=== PATIENT | female | born 1960 | race Caucasian/White ===

== ENCOUNTER 2024-01-25 16:06 | Inpatient (IN) | payer OTHER ==
--- NOTE | 2024-01-25 16:37 | ED ---
Skin/Abscess/FB HPI - General Chief complaint: Skin/Abscess/Foreign Body Stated complaint: R Breast Abcess Time Seen by Provider: 01/25/24 16:23 Source: patient, RN notes reviewed Mode of arrival: ambulatory Limitations: no limitations - History of Present Illness Initial comments: This is a 63-year-old female with a past medical history of breast cancer in remission who presents to the emergency department with chief complaint of a right-sided breast abscess. States that she noticed the abscess form last Sunday where she went to her primary care provider and was started on ciprofloxacin. Patient returned to her primary care provider on Sunday due to the area draining where the wound was then cultured. She was contacted by her PCP today stating that the wound culture grew Enterococcus species and was recommended to go to the emergency department for IV antibiotics due to having a medication allergy to penicillins. She denies fevers, nausea, vomiting, abdominal pain, chills, weakness. She denies nipple drainage. States her last mammogram was in July and was normal. - Related Data Home Medications Medication Instructions Recorded Confirmed Benzonatate [Tessalon Perle] 200 mg PO TID PRN 01/25/24 01/25/24 Bisoprolol-Hctz 10-6.25 mg [Ziac 1 tab PO HS 01/25/24 01/25/24 10-6.25 MG] Ciprofloxacin HCl [Cipro] 500 mg PO BID 01/25/24 01/25/24 Flaxseed 1000mg 1,000 mg PO HS 01/25/24 01/25/24 Ibuprofen [Motrin] 800 mg PO Q8H PRN 01/25/24 01/25/24 Montelukast [Singulair] 10 mg PO HS 01/25/24 01/25/24 Allergies Allergy/AdvReac Type Severity Reaction Status Date / Time Cephalosporins Allergy Anaphylaxis Verified 01/25/24 17:50 Penicillins Allergy Anaphylaxis Verified 01/25/24 17:50 shellfish derived [Shellfish] Allergy Anaphylaxis Verified 01/25/24 17:50 tree nut [Nut] Allergy Anaphylaxis Verified 01/25/24 17:50 Review of Systems ROS Statement: Those systems with pertinent positive or pertinent negative responses have been documented in the HPI. ROS Other: All systems not noted in ROS Statement are negative. Past Medical History Past Medical History: Hypertension History of Any Multi-Drug Resistant Organisms: None Reported Past Surgical History: Hysterectomy Past Psychological History: No Psychological Hx Reported Smoking Status: Never smoker Past Alcohol Use History: None Reported Past Drug Use History: None Reported General Exam Limitations: no limitations General appearance: alert, in no apparent distress Head exam: Present: atraumatic, normocephalic, normal inspection Eye exam: Present: normal appearance, PERRL, EOMI. Absent: scleral icterus, c onjunctival injection, periorbital swelling ENT exam: Present: normal exam, mucous membranes moist Neck exam: Present: normal inspection. Absent: tenderness, meningismus, lymphadenopathy Respiratory exam: Present: normal lung sounds bilaterally. Absent: respiratory distress, wheezes, rales, rhonchi, stridor Cardiovascular Exam: Present: regular rate, normal rhythm, normal heart sounds. Absent: systolic murmur, diastolic murmur, rubs, gallop, clicks GI/Abdominal exam: Present: soft, normal bowel sounds. Absent: distended, tenderness, guarding, rebound, rigid Extremities exam: Present: normal inspection, full ROM, normal capillary refill. Absent: tenderness, pedal edema, joint swelling, calf tenderness Back exam: Present: normal inspection Neurological exam: Present: alert, oriented X3, CN II-XII intact Psychiatric exam: Present: normal affect, normal mood Skin exam: Present: warm, dry, other (2.5 cm area of ulceration and purulence noted under the right breast that has an erythematous border, no drained noted, mildly fluctuant) Course Vital Signs 01/25/24 01/25/24 16:21 18:07 Temperature 97.7 F Pulse Rate 64 87 Respiratory 18 18 Rate Blood Pressure 153/78 168/78 O2 Sat by Pulse 97 97 Oximetry Medical Decision Making - Medical Decision Making Was pt. sent in by a medical professional or institution (, PA, LINE DRIVER, urgent care, hospital, or senior living...) When possible be specific @ -No Did you speak to anyone other than the patient for history (EMS, parent, family, police, friend...)? What history was obtained from this source @ -No Did you review nursing and triage notes (agree or disagree)? Why? @ -I reviewed and agree with nursing and triage notes Were old charts reviewed (outside hosp., previous admission, EMS record, old EKG, old radiological studies, urgent care reports/EKG's, senior living records)? Report findings @ -No old charts were reviewed Differential Diagnosis (chest pain, altered mental status, abdominal pain women, abdominal pain men, vaginal bleeding, weakness, fever, dyspnea, syncope, headache, dizziness, GI bleed, back pain, seizure, CVA, palpatations, mental health, musculoskeletal)? @ -breast abscess, cellulitis EKG interpreted by me (3pts min.). @ -None X-rays interpreted by me (1pt min.). @ -None done CT interpreted by me (1pt min.). @ -None done U/S interpreted by me (1pt. min.). @ -None done What testing was considered but not performed or refused? (CT, X-rays, U/S, labs)? Why? @ -None What meds were considered but not given or refused? Why? @ -None Did you discuss the management of the patient with other professionals (professionals i.e. , INDIO, LINE DRIVER, lab, RT, psych nurse, outreach and education social worker, independent driver, teacher, psychological operations officer, aviation program manager)? Give summary @ -I spoke with ODALYS Mccracken with [facility], in regard to admission for patient for IV antibiotics. Patient accepted Was smoking cessation discussed for >3mins.? @ -No Was critical care preformed (if so, how long)? @ -No Were there social determinants of health that impacted care today? How? (Homelessness, low income, unemployed, alcoholism, drug addiction, transportation, low edu. Level, literacy, decrease access to med. care, penitentiary, rehab)? @ -No Was there de-escalation of care discussed even if they declined (Discuss DNR or withdrawal of care, Hospice)? DNR status @ -No What co-morbidities impacted this encounter? (DM, HTN, Smoking, COPD, CAD, Cancer, CVA, ARF, Chemo, Hep., AIDS, mental health diagnosis, sleep apnea, morbid obesity)? @ -None Was patient admitted / discharged? Hospital course, mention meds given and route, prescriptions, significant lab abnormalities, going to OR and other pe rtinent info. @ -Admitted. 63-year-old female with complaint of right-sided breast abscess. On physical examination patient noted to have roughly 2 and half centimeter area of abscess that has borders of erythema and purulence noted with no signs of draining. Area is mildly fluctuant. At this time basic labs ordered in addition to lactic and blood cultures. I spoke with Kaykay from [facility] who is in agreement with admission for IV antibiotics due to patient's wound culture testing for Enterococcus. Patient will be started on vancomycin and admitted as inpatient. Spoke with Dr. Rehman Undiagnosed new problem with uncertain prognosis? @ -No Drug Therapy requiring intensive monitoring for toxicity (Heparin, Nitro, Insulin, Cardizem)? @ -No Were any procedures done? @ -No Diagnosis/symptom? @ -breast abscess, cellulitis Acute, or Chronic, or Acute on Chronic? @ -acute Uncomplicated (without systemic symptoms) or Complicated (systemic symptoms)? @ uncomplicated Side effects of treatment? @ -No Exacerbation, Progression, or Severe Exacerbation? @ -No Poses a threat to life or bodily function? How? (Chest pain, [place], [place], pneumonia, PE, COPD, DKA, ARF, appy, cholecystitis, CVA, Diverticulitis, Homicidal, Suicidal, threat to staff... and all critical care pts) @ -No - Lab Data Result diagrams: 01/25/24 17:12 01/25/24 17:12 Disposition Clinical Impression: Breast abscess of female Disposition: ADMITTED IP TO THIS [facility] Condition: Good Decision to Admit Reason: Admit from EC Decision Date: 01/25/24
[2024-01-25] MEDS ORDERED: VANCOMYCIN IV PER PHARMACY 1 EACH MISC MISCELLANE PRN (17:00)
[2024-01-25] MEDS ORDERED: NALOXONE 0.4 MG/ML 1 ML VIAL IV PRN (17:04)
[2024-01-25] MEDS: VANCOMYCIN 1,750 MG in SODIUM CHLORIDE 0.9% 500 ML 500 ML IVPB ONE (17:38)
[2024-01-25 17:49] LABS: ALT 22 U/L (4-34); AST 26 U/L (14-36); African American GFR (CKD) 89 (>60 ml/min/1.73 sqM); Albumin 4.2 g/dL (3.5-5.0); Alkaline Phosphatase 98 U/L (38-126); Anion Gap 8 mmol/L; Blood Urea Nitrogen 19 mg/dL (7-17); Calcium 10.1 mg/dL (8.4-10.2); Carbon Dioxide 25 mmol/L (22-30); Chloride 106 mmol/L (98-107); Glucose 93 mg/dL (74-99); Non-African American GFR(CKD) 77 (>60 ml/min/1.73 sqM); Potassium 4.1 mmol/L (3.5-5.1); Sodium 139 mmol/L (137-145); Total Bilirubin 0.2 mg/dL (0.2-1.3); Total Protein 7.1 g/dL (6.3-8.2)
[2024-01-25 17:52] LABS: Basophils # (A) 0.1 k/uL (0-0.2); Basophils % (A) 0 %; Eosinophils # (A) 0.2 k/uL (0-0.7); Eosinophils % (A) 2 %; HCT 40.8 % (34.0-46.0); HGB 13.7 gm/dL (11.4-16.0); Lymphocytes # (A) 2.9 k/uL (1.0-4.8); Lymphocytes % (A) 26 %; MCH 31.8 pg (25.0-35.0); MCHC 33.5 g/dL (31.0-37.0); MCV 94.9 fL (80.0-100.0); Mean Platelet Volume 9.1; Monocytes # (A) 0.6 k/uL (0-1.0); Monocytes % (A) 5 %; Neutrophils # (A) 7.1 k/uL (1.3-7.7); Neutrophils % (A) 64 %; Platelet Count 307 k/uL (150-450); WBC 11.1 k/uL (3.8-10.6)
[2024-01-25] MEDS ORDERED: BENZONATATE 100 MG CAP PO PRN (22:03)
[2024-01-25] MEDS ORDERED: FLAXSEED 1000 MG PO SCH (22:15)
[2024-01-25] MEDS ORDERED: CIPROFLOXACIN HCL 500 MG TAB PO SCH (22:15)
[2024-01-25] MEDS: BISOPROLOL-HCTZ 10-6.25 MG 1 EACH TAB PO SCH (22:55)
[2024-01-26] MEDS: IBUPROFEN 400 MG TAB PO PRN (03:31)
[2024-01-26] MEDS: ACETAMINOPHEN TAB 325 MG TAB PO PRN (08:25)
[2024-01-26 09:17] LABS: Basophils # (A) 0.04 X 10*3/uL (0.00-0.10); Basophils % (A) 0.5 %; Eosinophils # (A) 0.13 X 10*3/uL (0.04-0.35); Eosinophils % (A) 1.6 %; HCT 39.4 % (37.2-46.3); HGB 13.2 g/dL (12.0-15.0); Lymphocytes % (A) 30.6 %; MCH 31.8 pg (27.0-32.0); MCHC 33.5 g/dL (32.0-37.0); MCV 94.9 FL (80.0-97.0); Mean Platelet Volume 11.8 FL (9.5-12.2); Monocytes # (A) 0.66 X 10*3/uL (0.20-1.00); Monocytes % (A) 8.1 %; NRBC Per 100 WBC 0 X 10*3/uL (0.00-0.01); Neutrophils # (A) 4.83 X 10*3/uL (1.80-7.70); Platelet Count 309 X 10*3/uL (140-440); RBC 4.15 X 10*6/uL (4.10-5.20); RDW 12.4 % (11.5-14.5); WBC 8.18 X 10*3/uL (4.50-10.00)
[2024-01-26] MEDS: VANCOMYCIN 1,750 MG in SODIUM CHLORIDE 0.9% 500 ML 500 ML IVPB SCH (10:05)
[2024-01-26 10:53] LABS: ALT 16 U/L (8-44); AST 20 U/L (13-35); Albumin 3.9 g/dL (3.8-4.9); Alkaline Phosphatase 80 U/L (41-126); BUN/Creat Ratio 18.38 Ratio (12.00-20.00); Blood Urea Nitrogen 14.7 mg/dL (9.0-27.0); Calcium 9.5 mg/dL (8.7-10.3); Carbon Dioxide 25.2 mmol/L (21.6-31.8); Chloride 106 mmol/L (96-109); Globulin 2.3 g/dL (1.6-3.3); Glucose 96 mg/dL (70-110); Potassium 4.2 mmol/L (3.5-5.5); Sodium 141 mmol/L (135-145); Total Bilirubin 0.4 mg/dL (0.3-1.2); Total Protein 6.2 g/dL (6.2-8.2)
[2024-01-26] MEDS ORDERED: HYDROcodone/APAP 5-325MG 1 EACH TAB PO PRN (12:34)
[2024-01-26] MEDS ORDERED: HYDROmorphone 0.5 MG/0.5 ML SYRINGE IVP PRN (12:35)
--- NOTE | 2024-01-26 15:12 | HP ---
HISTORY AND PHYSICAL CHIEF COMPLAINT: Right breast abscess. HISTORY OF PRESENT ILLNESS: This is a 63-year-old woman with a past medical history of hypertension, being followed by Dr. Rose as an outpatient, noted to have right breast abscess since last Sunday. There was some discharge. The patient was started on because of failure of outpatient treatment. The patient was sent to [facility] for further evaluation and treatment. Enterococcus has grown from the cultures. There is no history of fever, rigors, or chills. Ultrasound has been done. PAST MEDICAL HISTORY: Hypertension. Rest of the history and rest of the chart is also reviewed. HOME MEDICATIONS: Singulair, dose and rest of medications noted. ALLERGIES: Cephalosporin, rest of allergies noted. FAMILY HISTORY: No history of heart disease or strokes. SOCIAL HISTORY: No history of smoking, alcohol, or drug abuse. REVIEW OF SYSTEMS: Fourteen-point review is negative as mentioned earlier. PHYSICAL EXAMINATION: VITAL SIGNS: Pulse is 57, blood pressure 142/80, respirations 16. CHEST: Clear to auscultation. CARDIOVASCULAR: S1 and S2. ABDOMEN: Soft. NERVOUS SYSTEM: No focal deficits. BREASTS: On examination of the right breast, area of whitish-yellowish discharge and demarcated area present, possibly abscess draining. LABORATORY DATA: Reviewed. ASSESSMENT: 1. Right breast abscess and cellulitis, status post failure of outpatient treatment. 2. Multiple allergies. 3. Hypertension. RECOMMENDATIONS AND DISCUSSION: This is a 63-year-old woman, who presented with multiple complex medical issues. We will monitor the patient closely. The patient was started on vancomycin, Infectious Disease evaluation, and cultures. Also recommend surgical evaluation and guarded prognosis because of multiple complex medical issues. DVT prophylaxis. Further recommendations to follow. Symptomatic treatment. MMODL / IJN: [id number] / JESSE
[2024-01-26] MEDS: MONTELUKAST 10 MG TAB PO SCH (20:51)
[2024-01-26] MEDS: HEPARIN SODIUM,PORCINE 5,000 UNIT/ML 1 ML VIAL SQ SCH (20:51)
--- NOTE | 2024-01-26 23:04 | P.CONS ---
History of Present Illness - Reason for Consult Consult date: 01/26/24 - History of Present Illness Patient is a 63-year-old female with a past medical history significant for hypertension previous history of right breast cancer status post lumpectomy however the patient recently did have a yearly mammogram that was negative for any abnormality apparently the patient has developed a wound to the right breast area and concern for possible abscess that has been treated in the outpatient setting with Cipro and did not have any improvement apparently the patient has been invited by her primary care physician culture have been obtained which grew Enterococcus for the patient was advised to go to the hospital for IV antibiotic therapy as the patient to have allergies to penicilli n and cephalosporin patient denies high-grade fever or any chills has been complaining of some dull aching pain to the right breast area mild to moderate intensity without any radiation did have wound but denies any foul-smelling drainage with the symptoms the patient was evaluated on presentation to the hospital the patient was afebrile and no fever have been recorded subsequently patient was nontachycardic hypertensive or hypoxic did have white count of 11.1 creatinine 0.82 liver enzymes are normal electrolytes are normal local culture has been obtained breast ultrasound obtained which is currently pending patient was started on vancomycin infectious disease was consulted for further manag ement of antibiotic therapy Past Medical History Past Medical History: Hypertension History of Any Multi-Drug Resistant Organisms: None Reported Past Surgical History: Hysterectomy Additional Past Surgical History / Comment(s): Breast lumpectomy, finger repair, left hand carpol tunnel Past Anesthesia/Blood Transfusion Reactions: No Reported Reaction Past Psychological History: No Psychological Hx Reported Smoking Status: Never smoker Past Alcohol Use History: None Reported Past Drug Use History: None Reported Medications and Allergies Home Medications Medication Instructions Recorded Confirmed Type Benzonatate [Tessalon Perle] 200 mg PO TID PRN 01/25/24 01/25/24 History Bisoprolol-Hctz 10-6.25 mg [Ziac 1 tab PO HS 01/25/24 01/25/24 History 10-6.25 MG] Ciprofloxacin HCl [Cipro] 500 mg PO BID 01/25/24 01/25/24 History Flaxseed 1000mg 1,000 mg PO HS 01/25/24 01/25/24 History Ibuprofen [Motrin] 800 mg PO Q8H PRN 01/25/24 01/25/24 History Montelukast [Singulair] 10 mg PO HS 01/25/24 01/25/24 History Allergies Allergy/AdvReac Type Severity Reaction Status Date / Time Cephalosporins Allergy Anaphylaxis Verified 01/25/24 17:50 Penicillins Allergy Anaphylaxis Verified 01/25/24 17:50 shellfish derived [Shellfish] Allergy Anaphylaxis Verified 01/25/24 17:50 tree nut [Nut] Allergy Anaphylaxis Verified 01/25/24 17:50 Physical Exam Vitals: Vital Signs Temp Pulse Pulse Resp BP BP Pulse Ox 01/26/24 07:34 97.8 F 57 L 16 142/82 97 01/26/24 01:31 97.9 F 57 L 17 117/70 97 01/25/24 21:52 97.7 F 70 18 153/79 99 01/25/24 21:36 78 16 166/71 96 01/25/24 21:00 61 81 H 110/59 99 01/25/24 18:07 87 18 168/78 97 01/25/24 16:21 97.7 F 64 18 153/78 97 Intake and Output 01/25/24 01/26/24 01/26/24 22:59 06:59 14:59 Other: Voiding Method Toilet # Voids 2 Weight 111.13 kg Results CBC & Chem 7: 01/26/24 04:10 01/26/24 04:10 Labs: Abnormal Lab Results - Last 24 Hours (Table) 01/25/24 01/25/24 Range/Units 17:12 17:12 WBC 11.1 H (3.8-10.6) k/uL BUN 19 H (7-17) mg/dL Assessment and Plan Plan: 1patient presented hospital with a nonhealing wound to the right breast area concerning for possible wound infection and underlying abscess with outpatient culture positive for Enterococcus faecalis failing oral ciprofloxacin therapy 2-patient with multiple antibiotic ALLERGIES that would limit the number of antibiotic safe to use 3-await ultrasound and surgical evaluation and need for debridement versus drainage 4-vancomycin pharmacy to dose target trough of 15 while watching kidney function and Vanco trough closely We will follow on clinical condition and cultures to further adjust medication if needed Thank you for this consultation we will follow the patient along with you Dictation was produced using Anda dictation software. please excuse any grammatical, word or spelling errors. Time with Patient: Greater than 30
[2024-01-27 09:24] LABS: Basophils # (A) 0.05 X 10*3/uL (0.00-0.10); Basophils % (A) 0.7 %; Eosinophils # (A) 0.11 X 10*3/uL (0.04-0.35); Eosinophils % (A) 1.5 %; HCT 40.6 % (37.2-46.3); HGB 13.7 g/dL (12.0-15.0); Lymphocytes # (A) 1.76 X 10*3/uL (0.90-5.00); Lymphocytes % (A) 23.2 %; MCH 31.6 pg (27.0-32.0); MCHC 33.7 g/dL (32.0-37.0); MCV 93.5 FL (80.0-97.0); Mean Platelet Volume 11.5 FL (9.5-12.2); Monocytes # (A) 0.49 X 10*3/uL (0.20-1.00); Monocytes % (A) 6.5 %; NRBC Per 100 WBC 0 X 10*3/uL (0.00-0.01); Neutrophils # (A) 5.14 X 10*3/uL (1.80-7.70); Neutrophils % (A) 67.8 %; Platelet Count 281 X 10*3/uL (140-440); RBC 4.34 X 10*6/uL (4.10-5.20); RDW 12.4 % (11.5-14.5); WBC 7.57 X 10*3/uL (4.50-10.00)
--- NOTE | 2024-01-27 09:34 | P.GSCN ---
History of Present Illness Consult date: 01/27/24 Reason for Consult: Possible right breast abscess History of present illness: This is a 61-year-old female who has a one-week history of induration of the skin under her right breast. Patient was admitted to the hospital for IV antibiotics. Patient has a 2 cm area of indurated skin. The skin appears to be sloughing in this area. Past Medical History Past Medical History: Hypertension History of Any Multi-Drug Resistant Organisms: None Reported Past Surgical History: Hysterectomy Additional Past Surgical History / Comment(s): Breast lumpectomy, finger repair, left hand carpol tunnel Past Anesthesia/Blood Transfusion Reactions: No Reported Reaction Past Psychological History: No Psychological Hx Reported Smoking Status: Never smoker Past Alcohol Use History: None Reported Past Drug Use History: None Reported Medications and Allergies Home Medications Medication Instructions Recorded Confirmed Type Benzonatate [Tessalon Perle] 200 mg PO TID PRN 01/25/24 01/25/24 History Bisoprolol-Hctz 10-6.25 mg [Ziac 1 tab PO HS 01/25/24 01/25/24 History 10-6.25 MG] Ciprofloxacin HCl [Cipro] 500 mg PO BID 01/25/24 01/25/24 History Flaxseed 1000mg 1,000 mg PO HS 01/25/24 01/25/24 History Ibuprofen [Motrin] 800 mg PO Q8H PRN 01/25/24 01/25/24 History Montelukast [Singulair] 10 mg PO HS 01/25/24 01/25/24 History Allergies Allergy/AdvReac Type Severity Reaction Status Date / Time Cephalosporins Allergy Anaphylaxis Verified 01/25/24 17:50 Penicillins Allergy Anaphylaxis Verified 01/25/24 17:50 shellfish derived [Shellfish] Allergy Anaphylaxis Verified 01/25/24 17:50 tree nut [Nut] Allergy Anaphylaxis Verified 01/25/24 17:50 Surgical - Exam Vital Signs Temp Pulse Resp BP Pulse Ox 97.7 F 64 18 153/78 97 01/25/24 16:21 01/25/24 16:21 01/25/24 16:21 01/25/24 16:21 01/25/24 16:21 - General well developed - Eyes PERRL - Abdomen Abdomen: soft, non tender - Integumentary There is a 2 cm area of induration skin which is lWhite in color and appears to be sloughing.c. There is no definite abscess palpated. Results - Labs 01/27/24 06:17 01/26/24 04:10 Microbiology - Last 24 Hours (Table) 01/25/24 17:12 Blood Culture - Preliminary Blood Diabetes panel 01/26/24 Range/Units 04:10 Sodium 141 (135-145) mmol/L Potassium 4.2 (3.5-5.5) mmol/L Chloride 106 (96-109) mmol/L Carbon Dioxide 25.2 (21.6-31.8) mmol/L BUN 14.7 (9.0-27.0) mg/dL Creatinine 0.8 (0.6-1.5) mg/dL Glucose 96 (70-110) mg/dL Calcium 9.5 (8.7-10.3) mg/dL AST 20 (13-35) U/L ALT 16 (8-44) U/L Alkaline Phosphatase 80 (41-126) U/L Total Protein 6.2 (6.2-8.2) g/dL Albumin 3.9 (3.8-4.9) g/dL Calcium panel 01/26/24 Range/Units 04:10 Calcium 9.5 (8.7-10.3) mg/dL Albumin 3.9 (3.8-4.9) g/dL Pituitary panel 01/26/24 Range/Units 04:10 Sodium 141 (135-145) mmol/L Potassium 4.2 (3.5-5.5) mmol/L Chloride 106 (96-109) mmol/L Carbon Dioxide 25.2 (21.6-31.8) mmol/L BUN 14.7 (9.0-27.0) mg/dL Creatinine 0.8 (0.6-1.5) mg/dL Glucose 96 (70-110) mg/dL Calcium 9.5 (8.7-10.3) mg/dL Adrenal panel 01/26/24 Range/Units 04:10 Sodium 141 (135-145) mmol/L Potassium 4.2 (3.5-5.5) mmol/L Chloride 106 (96-109) mmol/L Carbon Dioxide 25.2 (21.6-31.8) mmol/L BUN 14.7 (9.0-27.0) mg/dL Creatinine 0.8 (0.6-1.5) mg/dL Glucose 96 (70-110) mg/dL Calcium 9.5 (8.7-10.3) mg/dL Total Bilirubin 0.4 (0.3-1.2) mg/dL AST 20 (13-35) U/L ALT 16 (8-44) U/L Alkaline Phosphatase 80 (41-126) U/L Total Protein 6.2 (6.2-8.2) g/dL Albumin 3.9 (3.8-4.9) g/dL Assessment and Plan Assessment: Possible right breast abscess. Patient will be observed.If her condition change or may require incision and drainage.
[2024-01-27 10:10] LABS: BUN/Creat Ratio 16.86 Ratio (12.00-20.00); Blood Urea Nitrogen 11.8 mg/dL (9.0-27.0); Calcium 9.8 mg/dL (8.7-10.3); Carbon Dioxide 24.3 mmol/L (21.6-31.8); Chloride 104 mmol/L (96-109); Glucose 98 mg/dL (70-110); Potassium 4.3 mmol/L (3.5-5.5); Sodium 137 mmol/L (135-145)
--- NOTE | 2024-01-27 14:00 | PN ---
PROGRESS NOTE DATE OF SERVICE: 01/27/2024 SUBJECTIVE: This 63-year-old woman was admitted with right breast cellulitis and possible abscess, being closely monitored. Ultrasound is still pending. No chest pain, no palpitation. OBJECTIVE: VITAL SIGNS: Pulse is 55, blood pressure 141/84, respirations 18. CHEST: Clear to auscultation. CARDIOVASCULAR: S1, S2. ABDOMEN: Soft. BREASTS: Right breast cellulitis and some scab also present with indurated skin. LABORATORY DATA: Reviewed. ASSESSMENT: 1. Right breast cellulitis and possibly abscess, status post failure of outpatient treatment. 2. Multiple allergies. 3. Hypertension. RECOMMENDATIONS AND DISCUSSION: Recommended to continue current management, continue symptomatic treatment. Await final report of the ultrasound. Repeat labs. Continue with antibiotics. Closely follow with surgery, Infectious Disease. Further recommendations to follow. MMODL / IJN: [id number] /
[2024-01-28] MEDS: VANCOMYCIN TROUGH DUE 1 EACH MISC MISCELLANE ONE (08:54)
--- NOTE | 2024-01-28 09:04 | P.PN ---
Subjective Progress Note Date: 01/28/24 This 63-year-old female who was admitted for right-sided breast abscess and failure of outpatient treatment. Patient had been started on ciprofloxacin in our office and was not improving so culture was done and showed Enterococcus species. She has multiple medication allergies and limited susceptibility to Enterococcus so she was sent to the hospital for IV antibiotics. Patient remains on vancomycin. She has been seen and evaluated by surgeon and infectious disease. Surgeon at this time is not recommending any I&D. She did have an ultrasound of the right breast, no result yet. Patient is seen this morning sitting in chair at side of bed eating breakfast. She reports she has been up walking the halls. She is tolerating diet. She reports right breast abscess is still draining. Objective - Vital Signs Vital signs: Vital Signs Temp 97.7 F 01/28/24 06:58 Pulse 59 L 01/28/24 06:58 Resp 18 01/28/24 06:58 BP 157/90 01/28/24 06:58 Pulse Ox 97 01/28/24 06:58 FiO2 Intake & Output 01/27/24 01/28/24 01/28/24 18:59 06:59 18:59 Other: Voiding Method Toilet Toilet Toilet # Voids 1 1 1 - Constitutional General appearance: Present: cooperative, no acute distress - EENT Eyes: Present: PERRLA - Neck Neck: Present: normal ROM. Absent: lymphadenopathy, rigidity - Respiratory Respiratory: bilateral: CTA - Cardiovascular Rhythm: regular Heart sounds: normal: S1, S2 - Gastrointestinal General gastrointestinal: Present: soft. Absent: tenderness - Integumentary Integumentary: Present: cellulitis - Psychiatric Psychiatric: Present: A&O x's 3, appropriate affect, intact judgment & insight - Labs CBC & Chem 7: 01/27/24 06:17 01/27/24 06:17 Labs: Microbiology - Last 24 Hours (Table) 01/25/24 17:12 Blood Culture - Preliminary Blood Assessment and Plan (1) Breast abscess of female Current Visit: Yes Status: Acute Code(s): N61.1 - ABSCESS OF THE BREAST AND NIPPLE SNOMED Code(s): 23111785 (2) Cellulitis of right breast Current Visit: Yes Status: Acute Code(s): N61.0 - MASTITIS WITHOUT ABSCESS SNOMED Code(s): 34133957 (3) Hypertension Current Visit: Yes Status: Acute Code(s): I10 - ESSENTIAL (PRIMARY) HYPERTENSION SNOMED Code(s): 25839800 Plan: Continue IV antibiotics Await results of breast ultrasound Check CBC and CMP in the morning Patient seen and evaluated by nurse practitioner, physician in agreement with plan
--- NOTE | 2024-01-28 09:49 | USB ---
Reason for Exam: Clinical finding. Risk Values: Juliane 5 year model risk: 1.0%. NCI Lifetime model risk: 4.6%. Findings: Targeted ultrasound at the patient's area of concern shows some focal skin thickening, 5:00 position, 6 cm from the nipple. No underlying solid or cystic lesion or abnormal fluid collection is identified. No axillary lymphadenopathy. Overall Assessment: Incomplete: need additional imaging evaluation, BI-RAD 0 Management: Diagnostic Mammogram of both breasts. Recommend follow-up diagnostic workup with bilateral diagnostic mammograms. The targeted ultrasound at the 5:00 position area of concern shows focal skin thickening possibly relating to cellulitis. No underlying abscess is identified here. This exam should not preclude additional follow-up of suspicious palpable abnormalities. Results were given to the patient verbally at the time of exam. Electronically signed and approved by: Gabino Jalloh M.D. Radiologist
[2024-01-28 11:18] LABS: Basophils # (A) 0.05 X 10*3/uL (0.00-0.10); Basophils % (A) 0.8 %; Eosinophils # (A) 0.12 X 10*3/uL (0.04-0.35); Eosinophils % (A) 1.9 %; HCT 41.3 % (37.2-46.3); HGB 13.8 g/dL (12.0-15.0); Lymphocytes # (A) 1.66 X 10*3/uL (0.90-5.00); Lymphocytes % (A) 26.1 %; MCH 31.6 pg (27.0-32.0); MCHC 33.4 g/dL (32.0-37.0); MCV 94.5 FL (80.0-97.0); Mean Platelet Volume 11.7 FL (9.5-12.2); Monocytes # (A) 0.46 X 10*3/uL (0.20-1.00); Monocytes % (A) 7.2 %; NRBC Per 100 WBC 0 X 10*3/uL (0.00-0.01); Neutrophils # (A) 4.07 X 10*3/uL (1.80-7.70); Neutrophils % (A) 63.8 %; Platelet Count 312 X 10*3/uL (140-440); RBC 4.37 X 10*6/uL (4.10-5.20); RDW 12.4 % (11.5-14.5); WBC 6.37 X 10*3/uL (4.50-10.00)
[2024-01-28 11:28] LABS: BUN/Creat Ratio 20.71 Ratio (12.00-20.00); Blood Urea Nitrogen 14.5 mg/dL (9.0-27.0); Calcium 9.8 mg/dL (8.7-10.3); Carbon Dioxide 27.4 mmol/L (21.6-31.8); Chloride 103 mmol/L (96-109); Glucose 96 mg/dL (70-110); Potassium 4.6 mmol/L (3.5-5.5); Sodium 140 mmol/L (135-145)
--- NOTE | 2024-01-28 16:17 | P.PN ---
Subjective Progress Note Date: 01/28/24 CHIEF COMPLAINT: Possible right breast abscess HISTORY OF PRESENT ILLNESS: Patient reports decrease in pain. She does have drainage from the right breast. She reports that she thinks the central area of the breast abscess is getting darker. Afebrile. WBC 6.37 PHYSICAL EXAM: VITAL SIGNS: Reviewed. GENERAL: Well-developed in no acute distress. ABDOMEN: Soft. Nondistended. Nontender. NEUROLOGIC: Alert and oriented. Cranial nerves II through XII grossly intact. Skin: Under the right breast area of induration and white color. Inside the whitish color is a darkened area. Small amount of drainage noted on bandage. ASSESSMENT: 1. Possible right breast abscess PLAN: -Continue to observe. Patient may require incision and drainage -Continue antibiotics -Continue local wound care Physician Linux System Administrator note has been reviewed by physician. Signing provider agrees with the documented findings, assessment, and plan of care. Objective - Vital Signs Vital signs: Vital Signs Temp 97.8 F 01/28/24 12:30 Pulse 55 L 01/28/24 12:30 Resp 18 01/28/24 12:30 BP 141/90 01/28/24 12:30 Pulse Ox 97 01/28/24 12:30 FiO2 Intake & Output 01/27/24 01/28/24 01/28/24 18:59 06:59 18:59 Other: Voiding Method Toilet Toilet Toilet # Voids 1 1 1 # Bowel Movements 1 - Labs CBC & Chem 7: 01/28/24 08:13 01/28/24 08:13 Labs: Abnormal Lab Results - Last 24 Hours (Table) 01/28/24 Range/Units 08:13 BUN/Creatinine Ratio 20.71 H (12.00-20.00) Ratio Microbiology - Last 24 Hours (Table) 01/25/24 17:12 Blood Culture - Preliminary Blood
[2024-01-29 02:02] VITALS: TEMP 98
[2024-01-29 08:10] VITALS: BP 130/87; PULSE 55; RESP 16
--- NOTE | 2024-01-29 08:24 | P.DS ---
Providers Date of admission: 01/25/24 16:57 Attending physician: Juvenal Rose Consults: 01/26/24 06:50 Consult Physician Routine Consulting Provider: Janice Villafuerte Consult Reason/Comments: right breast abscess, failure of O/P tx Do you want consulting provider notified?: Yes 01/26/24 13:12 Consult Physician Urgent Consulting Provider: Sanijv Thompson Consult Reason/Comments: right breast abscess Do you want consulting provider notified?: Yes Primary care physician: Juvenal Rose - Discharge Diagnosis(es) (1) Cellulitis of right breast Current Visit: Yes Status: Acute (2) Hypertension Current Visit: Yes Status: Acute Hospital Course: This 63-year-old female who was admitted for possible right-sided breast abscess and failure of outpatient treatment. Patient had been started on ciprofloxacin in our office and was not improving so culture was done and showed Enterococcus species. She has multiple medication allergies and limited susceptibility to Enterococcus so she was sent to the hospital for IV antibiotics. Patient on vancomycin during admission. She has been seen and evaluated by surgeon and infectious disease. Surgeon at this time is not recommending any I&D. She did have an ultrasound of the right breast, which shows no abscess. Patient is eager to go home. Labs have been normal, no white count. Vital stable, no fever noted. Cellulitis on right breast is still draining some. Will need to check with Dr. Villafuerte about discharge antibiotics, oral vs IV. Once cleared by infectious disease and surgeon, and antibiotic plan is in place, patient may be discharged home. Patient seen and evaluated by nurse practitioner, physician in agreement with plan. Patient Condition at Discharge: Good Plan - Discharge Summary Discharge Rx Participant: No New Discharge Prescriptions: Continue Montelukast [Singulair] 10 mg PO HS Flaxseed 1000mg 1,000 mg PO HS Ibuprofen [Motrin] 800 mg PO Q8H PRN PRN Reason: Pain Bisoprolol-Hctz 10-6.25 mg [Ziac 10-6.25 MG] 1 tab PO HS Benzonatate [Tessalon Perle] 200 mg PO TID PRN PRN Reason: Cough Discontinued Ciprofloxacin HCl [Cipro] 500 mg PO BID Discharge Medication List Benzonatate [Tessalon Perle] 200 mg PO TID PRN 01/25/24 [History] Bisoprolol-Hctz 10-6.25 mg [Ziac 10-6.25 MG] 1 tab PO HS 01/25/24 [History] Flaxseed 1000mg 1,000 mg PO HS 01/25/24 [History] Ibuprofen [Motrin] 800 mg PO Q8H PRN 01/25/24 [History] Montelukast [Singulair] 10 mg PO HS 01/25/24 [History] Follow up Appointment(s)/Referral(s): Juvenal Rose MD [Primary Care Provider] - 3 Days Discharge Disposition: HOME SELF-CARE
--- NOTE | 2024-01-29 11:21 | P.PN ---
Subjective Progress Note Date: 01/29/24 CHIEF COMPLAINT: Possible right breast abscess HISTORY OF PRESENT ILLNESS: Patient reports improvement in her pain. She reports minimal discomfort. There is minimal drainage. Afebrile WBC 6.37 PHYSICAL EXAM: VITAL SIGNS: Reviewed. GENERAL: Well-developed in no acute distress. ABDOMEN: Soft. Nondistended. Nontender. NEUROLOGIC: Alert and oriented. Cranial nerves II through XII grossly intact. Skin: Under the right breast area of induration and white color. Inside the whitish color is a darkened area. Small amount of drainage noted on bandage. ASSESSMENT: 1. Right breast ulceration PLAN: -Patient can be discharged from surgical standpoint -No surgical intervention planned -Continue local wound care at discharge -Antibiotics per infectious disease Physician Stereo Operator note has been reviewed by physician. Signing provider agrees with the documented findings, assessment, and plan of care. Objective - Vital Signs Vital signs: Vital Signs Temp 98.0 F 01/29/24 07:27 Pulse 55 L 01/29/24 07:27 Resp 16 01/29/24 07:27 BP 130/87 01/29/24 07:27 Pulse Ox 97 01/29/24 07:27 FiO2 Intake & Output 01/28/24 01/29/24 01/29/24 18:59 06:59 18:59 Other: Voiding Method Toilet Toilet # Voids 1 1 # Bowel Movements 1 - Labs CBC & Chem 7: 01/28/24 08:13 01/28/24 08:13 Labs: Abnormal Lab Results - Last 24 Hours (Table) 01/28/24 Range/Units 08:13 BUN/Creatinine Ratio 20.71 H (12.00-20.00) Ratio Microbiology - Last 24 Hours (Table) 01/25/24 17:12 Blood Culture - Preliminary Blood
[2024-01-29 11:46] LABS: HCT 40.6 % (37.2-46.3); HGB 13.5 g/dL (12.0-15.0); MCH 31.5 pg (27.0-32.0); MCHC 33.3 g/dL (32.0-37.0); MCV 94.9 FL (80.0-97.0); NRBC Per 100 WBC 0 X 10*3/uL (0.00-0.01); Platelet Count 324 X 10*3/uL (140-440); RBC 4.28 X 10*6/uL (4.10-5.20); RDW 12.5 % (11.5-14.5); WBC 7.26 X 10*3/uL (4.50-10.00)
[2024-01-29 11:58] LABS: ALT 15 U/L (8-44); AST 18 U/L (13-35); Albumin/Globulin Ratio 1.74 Ratio (1.60-3.17); Alkaline Phosphatase 86 U/L (41-126); BUN/Creat Ratio 16.43 Ratio (12.00-20.00); Blood Urea Nitrogen 11.5 mg/dL (9.0-27.0); Carbon Dioxide 26.4 mmol/L (21.6-31.8); Chloride 105 mmol/L (96-109); Globulin 2.3 g/dL (1.6-3.3); Glucose 93 mg/dL (70-110); Potassium 4.4 mmol/L (3.5-5.5); Sodium 141 mmol/L (135-145); Total Bilirubin 0.4 mg/dL (0.3-1.2); Total Protein 6.3 g/dL (6.2-8.2)
--- NOTE | 2024-01-29 13:41 | P.PN ---
Subjective Progress Note Date: 01/27/24 Principal diagnosis: Reason for follow-up is right breast wound and possible abscess Patient is a 63-year-old female with a past medical history significant for hypertension previous history of right breast cancer status post lumpectomy however the patient recently did have a yearly mammogram that was negative for any abnormality, patient presented to hospital with a nonhealing wound on the right breast concerning for cellulitis outpatient culture with Enterococcus faecalis feeling outpatient oral Cipro. On today's evaluation that is 01/27/2024, the patient continues to be afebrile, the patient is on room air and breathing comfortably, the Pt denies having any chest pain or cough, the patient denies having any abdominal pain no vomiting or any diarrhea has been reported by the nursing staff, discomfort to the right breast slightly decreased in intensity Patient white count normalized to 7.57, creatinine 0.7 blood cultures pending ultrasound report is pending Objective - Vital Signs Vital signs: Vital Signs Temp 97.8 F 01/27/24 07:14 Pulse 55 L 01/27/24 07:14 Resp 18 01/27/24 07:14 BP 141/84 01/27/24 07:14 Pulse Ox 96 01/27/24 07:14 FiO2 Intake & Output 01/26/24 01/27/24 01/27/24 18:59 06:59 18:59 Intake Total 610 Balance 610 Intake: IV 110 0.9 Normal saline 110 Intake, IV Titration 500 Amount Vancomycin 1,750 mg In 500 Sodium Chloride 0.9% 500 ml 500 ml @ 167 mls/hr IVPB Q16H RUTH Rx#: [id number] Other: Voiding Method Toilet # Voids 1 2 1 - Exam GENERAL DESCRIPTION: Middle-aged female lying in bed in no distress RESPIRATORY SYSTEM: Unlabored breathing , decreased breath sounds at bases HEART: S1 S2 regular rate and rhythm , ABDOMEN: Soft , no tenderness Right breast with a wound with a soft tissue minimal surrounding redness Exam completed with the help of MAIL DISTRIBUTOR - Labs CBC & Chem 7: 01/29/24 06:25 01/29/24 06:25 Labs: Microbiology - Last 24 Hours (Table) 01/25/24 17:12 Blood Culture - Preliminary Blood Assessment and Plan (1) Allergy to multiple antibiotics Current Visit: Yes Status: Acute Code(s): Z88.1 - ALLERGY STATUS TO OTHER ANTIBIOTIC AGENTS SNOMED Code(s): 566473718 (2) Breast abscess of female Current Visit: Yes Status: Acute Code(s): N61.1 - ABSCESS OF THE BREAST AND NIPPLE SNOMED Code(s): 13632452 (3) Cellulitis of right breast Current Visit: Yes Status: Acute Code(s): N61.0 - MASTITIS WITHOUT ABSCESS SNOMED Code(s): 13553419 Plan: 1patient presented hospital with a nonhealing wound to the right breast area concerning for possible wound infection and underlying abscess with outpatient c ulture positive for Enterococcus faecalis failing oral ciprofloxacin therapy 2-patient with multiple antibiotic ALLERGIES that would limit the number of antibiotic safe to use 3-await ultrasound and surgical evaluation and need for debridement and deep culture 4-patient to vancomycin pharmacy to dose target trough of 15 while waiting for the workup to be completed Dictation was produced using [employer] dictation software. please excuse any grammatical, word or spelling errors. Time with Patient: Less than 30
--- NOTE | 2024-01-29 13:42 | P.PN ---
Subjective Progress Note Date: 01/28/24 Principal diagnosis: Reason for follow-up is right breast wound and possible abscess Patient is a 63-year-old female with a past medical history significant for hypertension previous history of right breast cancer status post lumpectomy however the patient recently did have a yearly mammogram that was negative for any abnormality, patient presented to hospital with a nonhealing wound on the right breast concerning for cellulitis outpatient culture with Enterococcus faecalis feeling outpatient oral Cipro. On today's evaluation that is 01/28/2024, Patient is afebrile patient is currently on room air and denies having any shortness of breath, the patient denies any chest pain or cough, the patient denies any nausea vomiting did not have any abdominal pain and no diarrhea, patient denies discomfort to the right breast area or any foul-smelling drainage. Patient white count is 6.37, creatinine 0.7 blood cultures pending ultrasound negative for any abscess or mass Objective - Vital Signs Vital signs: Vital Signs Temp 97.7 F 01/28/24 18:57 Pulse 69 01/28/24 18:57 Resp 18 01/28/24 20:00 BP 135/80 01/28/24 18:57 Pulse Ox 97 01/28/24 18:57 FiO2 Intake & Output 01/28/24 01/28/24 01/29/24 06:59 18:59 06:59 Other: Voiding Method Toilet Toilet Toilet # Voids 1 1 # Bowel Movements 1 - Exam GENERAL DESCRIPTION: Middle-aged female lying in bed in no distress RESPIRATORY SYSTEM: Unlabored breathing , decreased breath sounds at bases HEART: S1 S2 regular rate and rhythm , ABDOMEN: Soft , no tenderness Right breast wound is currently dressed - Labs CBC & Chem 7: 01/29/24 06:25 01/29/24 06:25 Labs: Abnormal Lab Results - Last 24 Hours (Table) 01/28/24 Range/Units 08:13 BUN/Creatinine Ratio 20.71 H (12.00-20.00) Ratio Microbiology - Last 24 Hours (Table) 01/25/24 17:12 Blood Culture - Preliminary Blood Assessment and Plan (1) Allergy to multiple antibiotics Current Visit: Yes Status: Acute Code(s): Z88.1 - ALLERGY STATUS TO OTHER ANTIBIOTIC AGENTS SNOMED Code(s): 121199280 (2) Cellulitis of right breast Current Visit: Yes Status: Acute Code(s): N61.0 - MASTITIS WITHOUT ABSCESS SNOMED Code(s): 51946008 Plan: 1patient presented hospital with a nonhealing wound to the right breast area concerning for possible wound infection and underlying abscess with outpatient culture positive for Enterococcus faecalis failing oral ciprofloxacin therapy 2-patient with multiple antibiotic ALLERGIES that would limit the number of antibiotic safe to use 3-ultrasound of the right breast was negative for any abscess surgery watching the patient not recommending any drainage at this point 4-patient to vancomycin pharmacy to dose while waiting for the culture to finalize Dictation was produced using [employer] dictation software. please excuse any grammatical, word or spelling errors. Time with Patient: Less than 30
--- NOTE | 2024-01-29 13:44 | P.PN ---
Subjective Progress Note Date: 01/29/24 Principal diagnosis: Reason for follow-up is right breast wound and possible abscess Patient is a 63-year-old female with a past medical history significant for hypertension previous history of right breast cancer status post lumpectomy however the patient recently did have a yearly mammogram that was negative for any abnormality, patient presented to hospital with a nonhealing wound on the right breast concerning for cellulitis outpatient culture with Enterococcus faecalis feeling outpatient oral Cipro. On today's evaluation that is 01/29/2024, patient has been afebrile, patient is breathing comfortably and is currently on room air, patient denies having any s ignificant cough no chest pain shortness of breath, patient denies nausea vomiting or diarrhea and no abdominal pain, patient denies pain to the right breast or any foul-smelling drainage feeling better. Patient white count is 7.26, creatinine 0.7 blood culture negative Objective - Vital Signs Vital signs: Vital Signs Temp 98.0 F 01/29/24 07:27 Pulse 55 L 01/29/24 07:27 Resp 16 01/29/24 07:27 BP 130/87 01/29/24 07:27 Pulse Ox 97 01/29/24 07:27 FiO2 Intake & Output 01/28/24 01/29/24 01/29/24 18:59 06:59 18:59 Other: Voiding Method Toilet Toilet # Voids 1 1 # Bowel Movements 1 - Exam GENERAL DESCRIPTION: Middle-aged female lying in bed in no distress RESPIRATORY SYSTEM: Unlabored breathing , decreased breath sounds at bases HEART: S1 S2 regular rate and rhythm , ABDOMEN: Soft , no tenderness Right breast wound with some slough tissue surrounding redness improve no drainage - Labs CBC & Chem 7: 01/29/24 06:25 01/29/24 06:25 Labs: Microbiology - Last 24 Hours (Table) 01/25/24 17:12 Blood Culture - Preliminary Blood Assessment and Plan (1) Allergy to multiple antibiotics Current Visit: Yes Status: Acute Code(s): Z88.1 - ALLERGY STATUS TO OTHER ANTIBIOTIC AGENTS SNOMED Code(s): 422492975 (2) Cellulitis of right breast Current Visit: Yes Status: Acute Code(s): N61.0 - MASTITIS WITHOUT ABSCESS SNOMED Code(s): 54645457 Plan: 1patient presented hospital with a nonhealing wound to the right breast area concerning for possible wound infection and underlying abscess with outpatient culture positive for Enterococcus faecalis failing oral ciprofloxacin therapy 2-patient with multiple antibiotic ALLERGIES that would limit the number of antibiotic safe to use 3-ultrasound of the right breast was negative for any abscess surgery recommended no drainage we will switch local wound care to the Santyl followed by moist dressing change daily 4-keeping in mind last culture were positive for Enterococcus faecalis patient not bacteremic she is allergic to penicillin we will consider a 10-day course of Zyvox prescription was sent to the pharmacy and close outpatient follow-up Dictation was produced using [employer] dictation software. please excuse any gramm atical, word or spelling errors. Time with Patient: Less than 30
[2024-01-29] MEDS: COLLAGENASE 250 UNIT/GM OINTMENT 30 GM TUBE TOPICAL SCH (14:04)
== END 2024-01-29 14:45 | disposition home or self-care (01) | DRG 601 ==
LOC: EC 16:06 → OBSVTOIN 16:57 → 5NMEDONC 16:57
PROVIDERS: ADMIT Family Medicine; ATTEND Family Medicine
DX: N61.1 Abscess of the breast and nipple (principal); I10 Essential (primary) hypertension; B95.2 Enterococcus as the cause of diseases classified elsewhere; Z79.899 Other long term (current) drug therapy; Z85.3 Personal history of malignant neoplasm of breast; Z88.0 Allergy status to penicillin; Z88.1 Allergy status to other antibiotic agents; Z90.710 Acquired absence of both cervix and uterus; Z91.018 Allergy to other foods; Z91.013 Allergy to seafood
CPT/HCPCS: 36415; 80048; 80053; 80202; 83605; 85025; 85027; 87040; 96365; 96366; 99284

== ENCOUNTER → 2024-07-11 | Outpatient (CLI) | payer OTHER ==
--- NOTE | 2024-07-11 11:24 | MM ---
Reason for Exam: Additional evaluation requested from prior study. Last screening mammogram was performed 12 month(s) ago. Patient History: Menarche at age 12. First Full-Term at age 26. Left ovary removed at age 41. Right ovary removed at age 41. Hysterectomy at age 41. Postmenopausal. Patient has history of breast feeding. Breast cancer, right, age 41. Patient tested for BRCA1 outcome was negative. Patient tested for BRCA2 outcome was negative. Tamoxifen for 5 years from age 41 until age 46. 02/20/2016, Benign MG stereo VAD BX LT - 2 on the left side. 02/19/2002, Malignant Excisional Biopsy on the right side. Maternal aunt (margo) had breast cancer, age 40. Maternal aunt (margo) had ovarian cancer, age 40. Maternal aunt (darian) had breast cancer, age 50. Maternal aunt (darian) had ovarian cancer, age 50. Maternal cousin (#1) had breast cancer. Maternal cousin (#2) had breast cancer. Maternal cousin (#4) had breast cancer. Sister (sera) had breast cancer, right, age 50. Sister (shannan) had breast cancer, age 40. Prior Study Comparison: 12/04/2016 Bilateral MG 3D screening mammo w/cad, Unknown. 07/19/2023 Bilateral MG 3D screening mammo w/cad, Unknown. 01/26/2024 Right US breast RT, [facility]. Tissue Density: There are scattered areas of fibroglandular density. Findings: Analyzed By CAD. Postoperative changes seen in right breast. Dense small 4 mm nodule upper outer left breast 8 cm from the nipple. Ultrasound is recommended. No suspicious microcalcifications identified. Overall Assessment: Incomplete: need additional imaging evaluation, BI-RAD 0 Management: Diagnostic Breast Ultrasound of the left breast. . Results were given to the patient verbally at the time of exam. Patient should continue monthly self-breast exams. A clinical breast exam by your physician is recommended on an annual basis. This exam should not preclude additional follow-up of suspicious palpable abnormalities. Note on Juliane scores and lifetime risk: 1. A Juliane score greater than 3% is considered moderate risk. If this is the case, consider specialist referral to assess eligibility for a risk reducing agent. 2. If overall lifetime risk for the development of breast cancer is 20% or higher, the patient may qualify for future screening with alternating mammogram and breast MRI. [facility], , 07/11/2024 11:07 AM. Electronically signed and approved by: Jorge Chavez M.D. Radiologis
--- NOTE | 2024-07-11 11:39 | USB ---
Reason for Exam: Additional evaluation requested from abnormal screening. Patient History: Menarche at age 12. First Full-Term at age 26. Left ovary removed at age 41. Right ovary removed at age 41. Hysterectomy at age 41. Postmenopausal. Patient has history of breast feeding. Breast cancer, right, age 41. Patient tested for BRCA1 outcome was negative. Patient tested for BRCA2 outcome was negative. Tamoxifen for 5 years from age 41 until age 46. 02/20/2016, Benign MG stereo VAD BX LT - 2 on the left side. 02/19/2002, Malignant Excisional Biopsy on the right side. Maternal aunt (margo) had breast cancer, age 40. Maternal aunt (margo) had ovarian cancer, age 40. Maternal aunt (darian) had breast cancer, age 50. Maternal aunt (darian) had ovarian cancer, age 50. Maternal cousin (#1) had breast cancer. Maternal cousin (#2) had breast cancer. Maternal cousin (#4) had breast cancer. Sister (sera) had breast cancer, right, age 50. Sister (shannan) had breast cancer, age 40. Technique: Method: Targeted. Prior Study Comparison: 12/04/2016 Bilateral MG 3D screening mammo w/cad, Unknown. 07/19/2023 Bilateral MG 3D screening mammo w/cad, Unknown. Findings: The upper outer quadrant of the left breast, the axilla of the left breast and the retroareolar of the left breast were scanned. At the 3:00 location approximately 8 cm from the nipple there is a 0.4 cm cyst which is smoothly marginated. No solid masses are seen within the imaged field.. Overall Assessment: Benign, BI-RAD 2 Management: Diagnostic Mammogram of both breasts in 1 year. A clinical breast exam by your physician is recommended on an annual basis and results should be correlated with mammographic findings. This exam should not preclude additional follow-up of suspicious palpable abnormalities. Results were given to the patient verbally at the time of exam. [facility], , 07/11/2024 11:33 AM. Electronically signed and approved by: Jorge Chavez M.D. Radiologis
== END | disposition home or self-care (01) ==
LOC: RADMAMWWP 09:49
PROVIDERS: ATTEND Surgery
DX: R92.8 Other abnormal and inconclusive findings on diagnostic imaging of breast
CPT/HCPCS: 77062; 77066